=== PATIENT | male | born 1995 ===

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

== ENCOUNTER 2017-04-08 12:42 | Emergency (ER) | payer BC ==
[~2017-04-08] VITALS: Ht 190.5 cm; Wt 89.7 kg
[2017-04-08 12:46] VITALS: TEMP 36.9; Ht 190.5 cm; Wt 89.7 kg
[2017-04-08] MEDS ORDERED: ASCO500T16 PO (13:01)
--- NOTE | 2017-04-08 13:40 | EMERGENCY ROOM VISIT NOTE ---
ED Visit Note First contact with patient: 13:28 CHIEF COMPLAINT: Lip laceration HISTORY OF PRESENT ILLNESS: This patient is a 21-year-old male presents to the emergency department with a laceration to the bottom lip that he sustained when he was "horsing around with his roommate." His lip hit his roommate's head. He also notes one of his bottom teeth are partially fractured. He is unsure where the other half of the tooth is. He denies any head or neck pain. No loss of consciousness. He denies any mandibular pain. REVIEW OF SYSTEMS: A 6 system review of systems was completed with positives and pertinent negatives listed in the HPI. ALLERGIES: No known drug allergies MEDICATIONS: Reviewed PMH: Otherwise healthy SOCIAL HISTORY: The patient is a [employer] student PHYSICAL EXAM: Vital Signs: Reviewed Nurse's notes, vital signs stable. GENERAL : 21-year-old male, in no acute distress, well-developed, well-nourished. SKIN : 1 cm laceration to the bottom lip on the wet vermilion border. The edges gape apart with traction. There is no active bleeding. The right bottom central incisor is partially fractured and regressed. No other lacerations of the mouth. No tenderness over the mandible or facial bones. EMERGENCY DEPARTMENT COURSE: I examined the patient. Verbal consent was obtained to perform the procedure. Using sterile technique the wound was cleansed with Betadine. The area was sterilely draped. 1 ml of 1% buffered lidocaine was used to anesthetize the laceration on the lip. Once the patient was anesthetized, the wound was copiously irrigated under pressure with sterile saline. The wound was explored and was as described above. The laceration was repaired using 3 simple interrupted 5-0 nylon sutures with the wound edges being well approximated. The patient tolerated the procedure well. Hemostasis was achieved. The patient was given 1 dose of Augmentin. Discharge instructions were reviewed, and he was discharged in good condition DIAGNOSIS: Lip laceration DISCHARGE INSTRUCTIONS & TREATMENT: Please try to keep the area clean. Please gargle 3 times daily with mouthwash. Please take the entire course of prophylactic antibiotics. Please follow-up with a dentist as soon as possible. Apply ice to the lip for 20 minute intervals over the next 24 hours. Ibuprofen 600 mg every 6 hours for pain as needed [place] 1-2 tabs every 4 hours for severe pain. Do not drink alcohol or drive while taking this medication. This may be taken with ibuprofen, but avoid Tylenol. Please watch for signs of infection such as increased redness, swelling or fever Suture removal in 6-7 days
[2017-04-08] MEDS ORDERED: XYLOCAINE 1%/SOD BICARB 20 ML VIAL INFIL ONE (13:45)
[2017-04-08] MEDS ORDERED: HYDR-5688 PO (14:27)
[2017-04-08] MEDS ORDERED: AMOX875T PO (14:27)
[2017-04-08] MEDS ORDERED: AMOXICILLIN/CLAVULANATE TAB 875 MG TAB PO ONE (14:30)
[2017-04-08 14:36] VITALS: BP 114/65; PULSE 94; O2SAT 96
== END 2017-04-08 15:04 | disposition home or self-care (01) ==
LOC: C.EDB 12:43 → C.EDD 15:04
DX: S01.511A Laceration without foreign body of lip, initial encounter (principal); S02.5XXA Fracture of tooth (traumatic), initial encounter for closed fracture; W51.XXXA Accidental striking against or bumped into by another person, initial encounter; Y92.039 Unspecified place in apartment as the place of occurrence of the external cause